=== PATIENT | female | born 1980 ===

== ENCOUNTER → 2016-11-07 | Outpatient (CLI) | payer BC ==
--- NOTE | 2016-11-08 10:21 | US ---
EXAM DESCRIPTION: Gall Bladder CLINICAL HISTORY: 36 years Female, RUQ PAIN COMPARISON: None. TECHNIQUE: Limited Abdominal Ultrasound FINDINGS: PANCREAS: No cyst, mass, or inflammatory changes evident. LIVER: Normal size and appearance without cyst or mass. BILIARY: Normal gallbladder without stones, wall thickening, or edema. Normal bile ducts with the CBD measuring 2.6 mm RT. KIDNEY: No gross abnormality of the right kidney is noted VENA CAVA: Normal appearance IMPRESSION: Normal right upper quadrant sonogram Electronically signed by: Shashank Barney MD 11/08/2016 10:20 AM CDT
== END | disposition home or self-care (01) ==
LOC: US 12:56
PROVIDERS: ATTEND Obstetrics & Gynecology
DX: R10.11 Right upper quadrant pain (principal)

== ENCOUNTER → 2018-10-21 | Outpatient (CLI) | payer BC | LOC: LAB.O 08:57 | PROVIDERS: ATTEND Obstetrics & Gynecology | DX: N93.8 Other specified abnormal uterine and vaginal bleeding (principal); E53.8 Deficiency of other specified B group vitamins ==

== ENCOUNTER → 2019-09-16 | Outpatient (CLI) | payer BC ==
--- NOTE | 2019-09-16 11:12 | RAD ---
1 Radiographs of the Abdomen. Indication: Personal history of urinary calculi Comparison: None. Impression: No free air. Bowel gas pattern nonspecific. No abnormal calcifications. Tiny calcified phleboliths suspected within the pelvis. If high clinical concern for renal stones, correlation with CT recommended. No acute osseous abnormality. Electronically signed by: Nasim Lynne MD 09/16/2019 11:10 AM [employer]
== END ==
LOC: RAD 10:40
PROVIDERS: ATTEND Obstetrics & Gynecology
DX: Z87.442 Personal history of urinary calculi (principal)

== ENCOUNTER → 2020-07-27 | Outpatient (CLI) | payer BC | LOC: GMALS 17:12 | PROVIDERS: ATTEND Nurse Practitioner Acute Care | DX: Z01.419 Encounter for gynecological examination (general) (routine) without abnormal findings (principal) ==